=== PATIENT | male | born 1980 | race Caucasian/White ===

== ENCOUNTER 2018-08-04 11:52 | Inpatient (IN) | payer MEDICAID, OTHER ==
[~2018-08-04] VITALS: Ht 175.3 cm; Wt 72.7 kg
[2018-08-04] MEDS ORDERED: CHAN1PAK11 PO (11:57)
[2018-08-04 12:57] LABS: HEMATOCRIT 48.5 % (42.0-52.0); HEMOGLOBIN 16.5 g/dl (13.5-17.5); MEAN CORPUSCULAR HEMOGLOBIN 31.4 pg (27.0-33.0); MEAN CORPUSCULAR VOLUME 92.2 fl (80.0-96.0); PLATELET COUNT, AUTOMATED 293 10^3/uL (150-450); RED BLOOD COUNT 5.26 10^6/uL (4.30-6.10); WHITE BLOOD COUNT 11.9 10^3/uL (4.0-10.0)
[2018-08-04 13:39] LABS: ACETAMINOPHEN LEVEL < 2.0 UG/ML (10.0-30.0); ALT/SGPT 34 U/L (12-78); BILIRUBIN,DIRECT < 0.1 MG/DL (0.0-0.2); BILIRUBIN,TOTAL 0.3 MG/DL (0.2-1.0); BLOOD UREA NITROGEN 12 MG/DL (7-18); CALCIUM LEVEL 9.1 MG/DL (8.5-10.1); CARBON DIOXIDE LEVEL 26 MEQ/L (21-32); CHLORIDE LEVEL 104 MEQ/L (98-107); CREATININE FOR GFR 1.09 MG/DL (0.70-1.30); ETHYL ALCOHOL (ETHANOL) < 0.003 % (0.000-0.010); GLOMERULAR FILTRATION RATE > 60.0 (>60); GLUCOSE, FASTING 84 MG/DL (70-100); POTASSIUM SERUM 4.4 MEQ/L (3.5-5.1); SALICYLATE LEVEL 4.7 MG/DL (5.0-30.0); SODIUM LEVEL 137 MEQ/L (136-145); TOTAL PROTEIN 7.1 GM/DL (6.4-8.2)
[2018-08-04 14:56] LABS: AMPHETAMINES LEVEL URINE NEGATIVE (NEGATIVE); BARBITURATES URINE NEGATIVE (NEGATIVE); BENZODIAZEPINES URINE NEGATIVE (NEGATIVE); CANNABINOIDS URINE POSITIVE (NEGATIVE); COCAINE METABOLITE URINE NEGATIVE (NEGATIVE); METHADONE URINE NEGATIVE (NEGATIVE); OPIATES URINE NEGATIVE (NEGATIVE); PHENCYCLIDINE URINE NEGATIVE (NEGATIVE)
[2018-08-04] MEDS ORDERED: traZODone 50 MG TAB PO PRN (17:15)
[2018-08-04] MEDS ORDERED: ACETAMINOPHEN TAB 650MG DOSE (2X325MG) PO PRN (17:15)
[2018-08-04] MEDS ORDERED: MOM 30ML SUSPENSION UDC PO PRN (17:15)
[2018-08-04] MEDS ORDERED: MAALOX 30 ML SUSP *UDC PO PRN (17:15)
[2018-08-04] MEDS ORDERED: VARENICLINE 0.5 MG TABLET PO ONE (23:15)
[2018-08-04 23:39] VITALS: BP 115/78
[2018-08-05 06:52] VITALS: BP 119/71
[2018-08-05] MEDS ORDERED: VARENICLINE 0.5 MG TABLET PO SCH (09:00)
[2018-08-05] MEDS ORDERED: AUGMENTIN 875 MG TAB PO SCH (09:00)
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
[2018-08-05 12:32] LABS: HEPATITIS B SURFACE ANTIGEN NEGATIVE (NEGATIVE)
[2018-08-05 13:00] LABS: HEPATITIS B CORE ANTIBODY IGM NEGATIVE (NEGATIVE); HEPATITIS C VIRUS ABY INDEX 0.1 INDEX (<0.8)
[2018-08-05 13:01] LABS: HIV 1&2 SCREEN CENTAUR NEGATIVE (NEGATIVE)
[2018-08-05 13:02] LABS: HEPATITIS A ANTIBODY IGM NEGATIVE (NEGATIVE)
[2018-08-05] MEDS ORDERED: PERI12LIQ SSP (15:37)
[2018-08-05] MEDS ORDERED: AMOX875T2 PO (15:37)
[2018-08-05] MEDS ORDERED: CHLORHEXIDINE GLUCONATE 0.12 % 15ML UDC (PERIDEX ORAL RINSE) SSP SCH (16:00)
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
== END 2018-08-05 16:15 | disposition home or self-care (01) | DRG 755 ==
LOC: M ED 11:52 → M ED INP 17:08 → M PSY 21:44
PROVIDERS: ADMIT Psychiatry & Neurology Psychiatry; ATTEND Psychiatry & Neurology Psychiatry
DX: F43.20 Adjustment disorder, unspecified (principal); R45.851 Suicidal ideations; F12.90 Cannabis use, unspecified, uncomplicated; Z79.899 Other long term (current) drug therapy; F17.200 Nicotine dependence, unspecified, uncomplicated; D72.829 Elevated white blood cell count, unspecified; K02.9 Dental caries, unspecified

== ENCOUNTER → 2018-08-19 | Outpatient (CLI) | payer OTHER ==
[~2018-08-19] MED LIST: AMOX875T2 PO; CHAN1PAK11 PO; PERI12LIQ SSP
--- NOTE | 2018-08-19 16:48 | REP ---
PA and lateral chest: There are no comparisons. The lung victoria are clear. The cardiac size is normal. The norris, mediastinum, and skeletal structures are unremarkable. Impression: Negative PA and lateral chest. Electronically Signed by Calixto Cooper MD 08/19/2018 04:40 P
== END ==
LOC: M WUC 14:53
PROVIDERS: ATTEND Physician Assistant
DX: R06.02 Shortness of breath (principal)

== ENCOUNTER 2021-06-23 13:38 | Inpatient (IN) | payer MEDICAID, OTHER, SELFPAY ==
[~2021-06-23] VITALS: Ht 167.6 cm; Wt 73.0 kg
[2021-06-23] MEDS ORDERED: OLANZapine INTRAMUSCULAR 10MG VIAL IM ONE (13:50)
[2021-06-23 16:03] LABS: HEMATOCRIT 44.8 % (42.0-52.0); HEMOGLOBIN 15.4 g/dl (13.5-17.5); MEAN CORPUSCULAR HEMOGLOBIN 31.4 pg (27.0-33.0); MEAN CORPUSCULAR HGB CONC 34.4 g/dl (32.0-36.5); MEAN CORPUSCULAR VOLUME 91.2 fl (80.0-96.0); PLATELET COUNT, AUTOMATED 336 10^3/uL (150-450); RED BLOOD COUNT 4.91 10^6/uL (4.30-6.10); WHITE BLOOD COUNT 9.1 10^3/uL (4.0-10.0)
[2021-06-23 16:28] LABS: AMPHETAMINES LEVEL URINE POSITIVE (NEGATIVE); BARBITURATES URINE NEGATIVE (NEGATIVE); BENZODIAZEPINES URINE NEGATIVE (NEGATIVE); CANNABINOIDS URINE POSITIVE (NEGATIVE); COCAINE METABOLITE URINE NEGATIVE (NEGATIVE); METHADONE URINE NEGATIVE (NEGATIVE); OPIATES URINE NEGATIVE (NEGATIVE); PHENCYCLIDINE URINE NEGATIVE (NEGATIVE)
[2021-06-23 16:42] LABS: ACETAMINOPHEN LEVEL < 2.0 UG/ML (10.0-30.0); ALBUMIN 3.7 GM/DL (3.2-5.2); ALT/SGPT 39 U/L (12-78); BILIRUBIN,DIRECT < 0.1 MG/DL (0.0-0.2); BILIRUBIN,TOTAL 0.2 MG/DL (0.2-1.0); BLOOD UREA NITROGEN 14 MG/DL (7-18); CALCIUM LEVEL 9.2 MG/DL (8.5-10.1); CARBON DIOXIDE LEVEL 26 MEQ/L (21-32); CHLORIDE LEVEL 110 MEQ/L (98-107); CREATININE FOR GFR 0.96 MG/DL (0.70-1.30); ETHYL ALCOHOL (ETHANOL) < 0.003 % (0.000-0.010); GLOMERULAR FILTRATION RATE > 60.0 (>60); GLUCOSE, FASTING 116 MG/DL (70-100); POTASSIUM SERUM 4.1 MEQ/L (3.5-5.1); SALICYLATE LEVEL 3.5 MG/DL (5.0-30.0); SODIUM LEVEL 143 MEQ/L (136-145); TOTAL PROTEIN 6.8 GM/DL (6.4-8.2)
[2021-06-23] MEDS ORDERED: LORazepam 2 MG TAB PO PRN (21:50)
[2021-06-23] MEDS ORDERED: traZODone 50 MG TAB PO PRN (21:50)
[2021-06-23] MEDS ORDERED: MOM 30ML SUSPENSION UDC PO PRN (21:50)
[2021-06-23] MEDS ORDERED: ACETAMINOPHEN TAB 650MG DOSE (2X325MG) PO PRN (21:50)
[2021-06-23] MEDS ORDERED: OLANZapine ORAL DISINTEGRATING TAB 5MG PO PRN (21:50)
[2021-06-23] MEDS ORDERED: MAALOX 30 ML SUSP *UDC PO PRN (21:50)
[2021-06-23 21:52] LABS: RSV AMPLIFICATION NEGATIVE (NEGATIVE)
[2021-06-23] MEDS ORDERED: HOME MED LIST COMPLETE! XX SCH (22:25)
[2021-06-23 23:31] VITALS: BP 143/93
[2021-06-24] MEDS ORDERED: INFLUENZA QUADRIVALENT PF VACCINE 0.5ML SYRINGE IM ONE (09:00)
[2021-06-24] MEDS ORDERED: NICOTINE 21MG/24HR 1 EA TRANSDERMAL TD PRN (14:20)
[2021-06-25] MEDS ORDERED: NICO21PAT TD (09:31)
== END 2021-06-25 10:47 | disposition home or self-care (01) | DRG 752 ==
LOC: M ED 13:38 → M ED INP 21:47 → M PSY 23:41
PROVIDERS: ADMIT Student in an Organized Health Care Education/Training Program; ATTEND Student in an Organized Health Care Education/Training Program
DX: F60.2 Antisocial personality disorder (principal); F10.10 Alcohol abuse, uncomplicated; F17.210 Nicotine dependence, cigarettes, uncomplicated